=== PATIENT | male | born 1970 | race African-American/Black ===

== ENCOUNTER 2018-06-28 02:22 | Emergency (ER) | payer OTHER ==
[2018-06-28 02:57] LABS: #Basophils 0.1 thou/uL (0.0-0.2); #Eosinphils 0.1 thou/uL (0.0-0.7); #Lymphocytes 2.2 thou/uL (1.20-3.40); #Monocytes 0.5 thou/uL (0.11-0.59); #Neutrophils 4.2 thou/uL (1.40-6.50); %Basophils 1.2 % (0.0-1.0); %Eosinophils 1.6 % (0.0-10.0); %Lymphocytes 31.3 % (21.0-51.0); %Monocytes 7.1 % (0.0-10.0); %Neutrophils 58.8 % (42.0-75.0); Hemoglobin 10.9 g/dL (14.0-18.0); Mean Corpuscular HGB CONC 31.4 g/dL (32.0-36.0); Mean Corpuscular Volume 76.5 fL (78.0-98.0); Mean Platelet Volume 7.8 fL (7.4-10.4); Platelet Count 237 thou/uL (130-400); RBC Distribution Width 11.3 % (11.5-14.5); Red Blood Cell (RBC) Count 4.55 mill/uL (4.70-6.10); White Blood Cell (WBC) Count 7.1 thou/uL (4.8-10.8)
[2018-06-28 03:22] LABS: Troponin I Less than 0.010 ng/mL (< 0.028)
[2018-06-28 03:25] LABS: ALT (SGPT) 51 U/L (8-55); AST (SGOT) 87 U/L (5-34); Albumin 4.2 g/dL (3.5-5.0); Alcohol 125 mg/dL (Less than 10); Alkaline Phosphatase 48 U/L (40-150); Anion Gap 13 mmol/L (10-20); BUN (Urea Nitrogen) 12 mg/dL (8.9-20.6); Bilirubin, Total 0.9 mg/dL (0.2-1.2); Calc. Creatinine Clearance 0 mL/min (70-130); Calcium 9.5 mg/dL (7.8-10.44); Carbon Dioxide 25 mmol/L (22-29); Chloride 104 mmol/L (98-107); Estimated GFR-MDRD 81; Globulin 3.1 g/dL (2.4-3.5); Glucose 202 mg/dL (70-105); Potassium 4.2 mmol/L (3.5-5.1); Protein, Total 7.3 g/dL (6.0-8.3); Sodium 138 mmol/L (136-145)
[2018-06-28 03:27] LABS: CKMB 11.8 ng/mL (0-6.6)
[2018-06-28 04:53] LABS: Bilirubin Negative (Negative); Blood, Urine Negative (Negative); Clarity CLEAR (Clear); Glucose, Urine (Dipstick) 250 mg/dL (Negative); Leukocyte Negative (Negative); Nitrite Negative (Negative); Protein, Urine (Dipstick) 30 mg/dL (Neg-Trace); Specific Gravity, Urine 1.009 (1.002-1.036); Urobilinogen 0.2 mg/dL (0.2-1.0); pH, Urine 5.5 (5.0-9.0)
[2018-06-28 04:56] LABS: Bacteria/HPF None Seen HPF (None Seen); Hyaline Casts/LPF 4-6 HYALINE CAST LPF (0-3 Hyaline); Pathc Cast-AUWi Flag 0.58 (0-2.49); RBC/HPF None Seen HPF (0-3); Squamous Epithelial 0-3 HPF (0-3); WBC/HPF 0-3 HPF (0-3)
[2018-06-28 05:05] LABS: Amphetamine Not Detected (NotDetected); Barbiturates Screen Not Detected (NotDetected); Benzodiazepine Screen Not Detected (NotDetected); Cocaine Metabolite Screen Not Detected (NotDetected); Medtox Control Line Valid? VALID (VALID); Medtox Reader # READER 4; Methadone Not Detected (NotDetected); Methamphetamine Not Detected (NotDetected); Opiate Screen Not Detected (NotDetected); Oxycodone Screen Not Detected (NotDetected); Phencyclidine (PCP) Not Detected (NotDetected); THC/Cannabinoid Screen Not Detected (NotDetected); Tricyclic Screen Not Detected (NotDetected)
--- NOTE | 2018-06-28 07:48 | RAD ---
SINGLE VIEW OF THE CHEST: COMPARISON: None. HISTORY: Syncope. Seizure. FINDINGS: Single view of the chest shows a normal sized cardiomediastinal silhouette. There is no evidence of c onsolidation, mass, or pleural effusion. The bones are unremarkable. IMPRESSION: No evidence of acute cardiopulmonary disease. POS: [facility]
--- NOTE | 2018-06-28 08:43 | CT ---
PRELIMINARY REPORT/[facility]/EMERGENTY AFTER-HOURS PROCEDURE CT Head Without Intravenous Contrast EXAM DATE/TIME: 06/28/2018 3:03 AM CLINICAL HISTORY: 48 years old, male; Injury or trauma and signs and symptoms; Fall; Initial encounter; Blunt trauma (c ontusions or hematomas); Consciousness not specified; Altered mental status/memory loss; Confusion or disorientation; Patient HX: M48 presents to ed via ems for AMS per . reports that patient got out of bed and walked into laundry room where patient fell, unwitnessed but heard by daughter from other room. PT found PT on the floor lying over a laundry basket. took him t o the bathroom after he indicated the need to urinate but states he was not speaking at that louie e. While urinating, patient "went limp" and lost consciousness causing him to fall forward and hit hi s head on the wall TECHNIQUE: Axial computed tomography images of the head/brain without intravenous contrast. COMPARISON: No relevant prior studies available. FINDINGS: Brain: No acute intracranial hemorrhage or mass effect. No definite acute infarct by CT. MRI could be more sensitive/specific for detection, as clinically di rected. Ventricles: Ventricle size is normal for age. Bones/joints: No definite acute skull fracture. Sinuses: Included paranasal sinuses are essentially clear. Mastoid air cells: No significant acute finding. IMPRESSION: 1. No acute intracranial bleed or mass effect. 2. No definite acute infarct by CT, see above. Thank you for allowing us to participate in the care of your patient. Dictated and Authenticated by: Harpreet Sierra MD 06/28/2018 3:18 AM Central Time ([place] & [place]) FINAL REPORT EMERGENCY AFTER HOURS BRAIN CT WITHOUT IV CONTRAST: Date: 06/28/18 Time: 0304 hours FINDINGS/IMPRESSION: No mass or bleed, or other acute process. Report in agreement with preliminary report given on-call by vRsteven. POS: [facility]
--- NOTE | 2018-06-30 18:24 | EKG ---
Test Reason : SYNCOPE Blood Pressure : / mmHG Vent. Rate : 088 BPM Atrial Rate : 088 BPM P-R Int : 174 ms QRS Dur : 094 ms QT Int : 362 ms P-R-T Axes : 054 002 025 degrees QTc Int : 438 ms Normal sinus rhythm Nonspecific ST and T wave abnormality Abnormal ECG Confirmed by JELENA GAMBOA ([id number]), field map editor DARRON RAMOS ([id number]) on 06/30/2018 6:23:36 PM Referred By: Confirmed By:JELENA GAMBOA
== END 2018-06-28 08:20 | disposition home or self-care (01) ==
LOC: ERS 02:22
DX: M62.82 Rhabdomyolysis (principal); R41.82 Altered mental status, unspecified; I10 Essential (primary) hypertension; E11.9 Type 2 diabetes mellitus without complications; E78.00 Pure hypercholesterolemia, unspecified; F17.220 Nicotine dependence, chewing tobacco, uncomplicated; Z79.899 Other long term (current) drug therapy
CPT/HCPCS: 36415; 36416; 70450; 71045; 80053; 80306; 80307; 81003; 81015; 82553; 84484; 85025; 93005; 96360; 96361

== ENCOUNTER 2019-04-04 05:46 | Emergency (ER) | payer OTHER ==
[2019-04-04] MEDS ORDERED: Ondansetron PF 4 MG/2 ML Vial ONE (06:18)
[2019-04-04] MEDS ORDERED: Aspirin Chewable 81 MG TAB ONE (06:18)
[2019-04-04] MEDS ORDERED: Morphine 4 MG/ML VIAL ONE (06:18)
[2019-04-04 07:07] LABS: #Basophils 0.1 thou/uL (0.0-0.2); #Lymphocytes 0.9 thou/uL (1.20-3.40); #Monocytes 1.2 thou/uL (0.11-0.59); #Neutrophils 8.4 thou/uL (1.40-6.50); %Basophils 0.6 % (0.0-1.0); %Eosinophils 0.3 % (0.0-10.0); %Lymphocytes 8.7 % (21.0-51.0); %Monocytes 11.3 % (0.0-10.0); %Neutrophils 79.1 % (42.0-75.0); Hemoglobin 11.5 g/dL (14.0-18.0); Mean Corpuscular Hemoglobin 23.5 pg (27.0-31.0); Mean Corpuscular Volume 75.8 fL (78.0-98.0); Mean Platelet Volume 7.9 fL (7.4-10.4); Platelet Count 233 thou/uL (130-400); RBC Distribution Width 11.2 % (11.5-14.5); Red Blood Cell (RBC) Count 4.88 mill/uL (4.70-6.10); White Blood Cell (WBC) Count 10.7 thou/uL (4.8-10.8)
[2019-04-04 07:22] LABS: ALT (SGPT) 29 U/L (8-55); AST (SGOT) 22 U/L (5-34); Albumin 4.8 g/dL (3.5-5.0); Alkaline Phosphatase 64 U/L (40-150); Anion Gap 17 mmol/L (10-20); BUN (Urea Nitrogen) 10 mg/dL (8.9-20.6); Bilirubin, Total 0.5 mg/dL (0.2-1.2); Calc. Creatinine Clearance 0 mL/min (70-130); Calcium 9.9 mg/dL (7.8-10.44); Carbon Dioxide 23 mmol/L (22-29); Chloride 102 mmol/L (98-107); Estimated GFR-MDRD 77; Globulin 3.7 g/dL (2.4-3.5); Glucose 239 mg/dL (70-105); Potassium 4.2 mmol/L (3.5-5.1); Protein, Total 8.5 g/dL (6.0-8.3); Sodium 138 mmol/L (136-145)
--- NOTE | 2019-04-04 07:51 | RAD ---
XR Chest 1 View Portable HISTORY: Chest pain COMPARISON: 06/28/2018 FINDINGS: The heart size is normal. The lungs are well expanded without focal areas of consolidation, pneumothorax or pleural effusions. IMPRESSION: No radiographic evidence of acute cardiopulmonary process.
[2019-04-04] MEDS ORDERED: Ketorolac Tromethamine 30 MG/ML VIAL ONE (08:50)
[2019-04-04 10:57] LABS: Troponin I Less than 0.010 ng/mL (< 0.028)
--- NOTE | 2019-04-07 03:16 | EKG ---
Test Reason : Blood Pressure : / mmHG Vent. Rate : 082 BPM Atrial Rate : 082 BPM P-R Int : 154 ms QRS Dur : 084 ms QT Int : 352 ms P-R-T Axes : 020 000 -06 degrees QTc Int : 411 ms Normal sinus rhythm Possible Left atrial enlargement Borderline ECG Confirmed by SANGITA JULIEN DO ([id number]), editor news DARRON RAMOS ([id number]) on 04/07/2019 3:15:21 AM Referred By: Confirmed By:SANGITA JULIEN DO
== END 2019-04-04 11:47 | disposition home or self-care (01) ==
LOC: ERS 05:46
DX: R07.9 Chest pain, unspecified (principal); E11.9 Type 2 diabetes mellitus without complications; I10 Essential (primary) hypertension; E78.00 Pure hypercholesterolemia, unspecified; F17.220 Nicotine dependence, chewing tobacco, uncomplicated; Z79.84 Long term (current) use of oral hypoglycemic drugs; Z79.899 Other long term (current) drug therapy
CPT/HCPCS: 36415; 71045; 80053; 84484; 85025; 93005; J1885; J2270; J2405

== ENCOUNTER 2019-04-04 17:54 | Inpatient (IN) | payer OTHER ==
[~2019-04-04 17:54] MED LIST: ISOVUE-370 76%-LOCM 1 ML ONE
[2019-04-04] MEDS ORDERED: Acetaminophen 500 MG TAB ONE ×2 (18:50→19:28)
--- NOTE | 2019-04-04 19:03 | RAD ---
Chest one view HISTORY: Chest pain. COMPARISON: 04/04/2019. FINDINGS: Cardiac silhouette is magnified by projection. Pulmonary vasculature is unremarkable. Chron ic interstitial prominence at the lung bases is unchanged in appearance. Mediastinum is midline. No lobar consolidation or evidence of pneumothorax. IMPRESSION: No active cardiopulmonary abnormalities are demonstrated.
[2019-04-04 19:58] LABS: #Monocytes 1.4 thou/uL (0.11-0.59); #Neutrophils 10.4 thou/uL (1.40-6.50); %Basophils 0.3 % (0.0-1.0); %Eosinophils 0.1 % (0.0-10.0); %Monocytes 10.7 % (0.0-10.0); Hemoglobin 11.2 g/dL (14.0-18.0); Mean Corpuscular HGB CONC 32.7 g/dL (32.0-36.0); Mean Corpuscular Hemoglobin 24.2 pg (27.0-31.0); Mean Corpuscular Volume 74.1 fL (78.0-98.0); Mean Platelet Volume 10.5 fL (7.4-10.4); Platelet Count 222 thou/uL (130-400); RBC Distribution Width 11.4 % (11.5-14.5); Red Blood Cell (RBC) Count 4.64 mill/uL (4.70-6.10); White Blood Cell (WBC) Count 12.9 thou/uL (4.8-10.8)
[2019-04-04 20:56] LABS: Albumin 4.1 g/dL (3.5-5.0)
[2019-04-04 20:57] LABS: Chloride 100 mmol/L (98-107); Potassium 3.8 mmol/L (3.5-5.1); Sodium 133 mmol/L (136-145)
[2019-04-04] MEDS ORDERED: Aspirin 325 MG TAB ONE (20:57)
[2019-04-04 20:58] LABS: Calcium 8.9 mg/dL (7.8-10.44)
[2019-04-04 20:59] LABS: Globulin 3.1 g/dL (2.4-3.5); Glucose 193 mg/dL (70-105); Protein, Total 7.2 g/dL (6.0-8.3)
[2019-04-04 21:00] LABS: Anion Gap 12 mmol/L (10-20); Carbon Dioxide 25 mmol/L (22-29)
[2019-04-04 21:01] LABS: Alkaline Phosphatase 53 U/L (40-150); Bilirubin, Total 0.5 mg/dL (0.2-1.2)
[2019-04-04 21:02] LABS: Calc. Creatinine Clearance 0 mL/min (70-130); Estimated GFR-MDRD 84
[2019-04-04 21:03] LABS: BUN (Urea Nitrogen) 11 mg/dL (8.9-20.6)
[2019-04-04 21:04] LABS: ALT (SGPT) 23 U/L (8-55); AST (SGOT) 16 U/L (5-34)
[2019-04-04 21:05] LABS: CK (CPK) 157 U/L (30-200); Lipase 14 U/L (8-78)
--- NOTE | 2019-04-04 21:13 | CT ---
CT arteriogram chest with IV contrast and 3-D imaging HISTORY: Chest pain. FINDINGS: There is good contrast opacification pulmonary arteries and thoracic aorta with normal bran ashwini of the great vessels at the aortic arch. No pneumothorax or mediastinal adenopathy. Mild patchy bibasilar atelectasis. No lobar consolidation or pleural fluid. IMPRESSION: No CT evidence of pulmonary embolus.
[2019-04-04 21:30] LABS: Bilirubin Negative (Negative); Blood, Urine Negative (Negative); Clarity Clear (Clear); Glucose, Urine (Dipstick) Greater than 1000 mg/dL (Negative); Leukocyte Negative Leu/uL (Negative); Nitrite Negative (Negative); Protein, Urine (Dipstick) Negative (Neg-Trace); Urobilinogen Normal mg/dL (Less than 2)
[2019-04-04] MEDS ORDERED: Ketorolac Tromethamine 30 MG/ML VIAL ONE (21:48)
[2019-04-04 23:24] LABS: Troponin I Less than 0.010 ng/mL (< 0.028)
[2019-04-05 02:34] LABS: Troponin I Less than 0.010 ng/mL (< 0.028)
[2019-04-05] MEDS ORDERED: Ondansetron PF 4 MG/2 ML Vial IVP PRN (03:18)
[2019-04-05] MEDS ORDERED: HYDROcodone/Acetaminophen 5/325 mg Tablet PO PRN ×2 (03:18)
[2019-04-05] MEDS ORDERED: Ondansetron ODT 4 MG TAB SL PRN (03:18)
[2019-04-05 03:35] VITALS: BMI 27.2
[2019-04-05] MEDS ORDERED: Dextrose 5% in Water 1,000 ML IV PRN (06:07)
[2019-04-05] MEDS ORDERED: Dextrose 50% Abboject 50 ML SYRINGE SLOW IVP PRN (06:07)
[2019-04-05] MEDS ORDERED: Ibuprofen 800 MG TAB PO PRN (06:07)
[2019-04-05] MEDS ORDERED: Cyclobenzaprine 10 MG TAB PO PRN (06:07)
[2019-04-05] MEDS: Ibuprofen 200 MG TAB PO PRN ×2 (06:32→14:31)
--- NOTE | 2019-04-05 07:13 | HP ---
PRIMARY CARE DOCTOR: Evaristo Cobb MD CODE STATUS: Full code. TIME OF EVALUATION: 6:00 a.m. CHIEF COMPLAINT: Chest pain. HISTORY OF PRESENT ILLNESS: This is a 49-year-old male patient with past medical history of hypertension, high cholesterol, diabetes type 2, came to the hospital after having shoulder pain in the right shoulder. The symptoms appeared when he was doing heavy work and felt a tingling sensation. After that, the patient developed fever. There is no evidence, source, or symptoms. The pain is sharp, severe, sudden onset, has continued to worsen. Fever is still present during my evaluation. REVIEW OF SYSTEMS: All systems reviewed were negative except for the findings mentioned above. PAST MEDICAL HISTORY: Possible hypertension, high cholesterol, diabetes type 2. PAST SURGICAL HISTORY: No surgical history. PSYCH HISTORY: No previous psych history. SOCIAL HISTORY: The patient drinks socially every week. No drugs. The patient chews tobacco. KNOWN ALLERGIES: No known drug allergies. REPORTED MEDICATIONS: 1. Losartan. 2. Ibuprofen. 3. Metformin. 4. Flexeril. 5. Flonase. 6. Acetaminophen. 7. Codeine. 8. Motrin. PHYSICAL EXAMINATION: VITAL SIGNS: On presentation, blood pressure 147/71, heart rate 93, respiratory rate was 18, temperature 101.2. Pain was 7/10. Oxygen saturation was 100% on room air. GENERAL APPEARANCE: The patient is alert, oriented, in no acute distress. HEENT: Eyes, normal conjunctivae. Moist oral mucosa. Anicteric. No JVD. RESPIRATORY: Bilateral air entry. No rales. No wheezes. Symmetric expansion. CARDIOVASCULAR: Normal rate, regular rhythm. No murmurs. No gallop. No edema. ABDOMEN: Soft. Normal bowel sounds. MUSCULOSKELETAL: Baseline range of motion and strength except for the right shoulder that is tender with movement. SKIN: Warm, intact. No pallor. No rash. No redness. Capillary refill seems be to intact. NEUROLOGIC: No evidence of any new focal weakness. Cranial nerves seem to be intact. PSYCH: The patient is in good mood. No anxiety. Optimal judgment. DIAGNOSTIC FINDINGS: EKG was reviewed. The patient has normal sinus rhythm at a rate of 60 with nonspecific T-wave changes. RADIOLOGY: Chest CT negative. No pulmonary embolism. No pneumonia. LABORATORY DATA: White count of 12.9, hemoglobin 11.2, MCV 74.1, platelet count 222. D-dimer 1.66. Sodium 133, potassium 3.8, chloride 100, carbon dioxide 25, anion gap 12, BUN 11, creatinine 1.12, GFR 84, glucose 193, the repeat one 316, lactic acid 2.0, calcium 8.9. Troponin was negative x3. Urine was done which shows glycosuria. ASSESSMENT AND PLAN: The patient will be placed in the hospital with following medical problems: 1. Systemic inflammatory response syndrome, unclear etiology for the fever and tachycardia. We will continue to monitor. Cultures have been sent. We will adjust treatment as per the findings. His daughter is having the same symptoms with upper respiratory infection symptoms a week ago, so these might be . 2. Hyponatremia with sodium of 133, this is mild, we will monitor. No need for any acute intervention at this point. 3. Uncontrolled diabetes with sugar of 316. We will reconcile home medications and put the patient on sliding scale for optimal control. 4. Chest pain, seems to be musculoskeletal. The patient has fever. The patient has a history of pulling the muscles. We will monitor and treat symptomatically. If any further concern remains, could consider cardiac workup. By history, it does not seems to be cardiac. Job ID: [id number]
[2019-04-05] MEDS: Acetaminophen/Codeine 30-300mg Tablet PO PRN ×2 (08:51→23:09)
[2019-04-05] MEDS: Losartan 25 MG TAB PO SCH (08:54)
[2019-04-05] MEDS ORDERED: FLUTICASONE PROPIONATE IH SCH (09:00)
--- NOTE | 2019-04-05 15:27 | PDOC.HOSPP ---
- Subjective Encounter Date: 04/05/19 Encounter Time: 15:26 Subjective: pt up in bed has pain to his right chest wall area - Objective Vital Signs & Weight: Vital Signs (12 hours) Temp Pulse Resp BP Pulse Ox 04/05/19 14:29 100.2 F H 04/05/19 11:40 98 F 88 12 138/75 96 04/05/19 08:00 98.4 F 74 12 124/64 94 L 04/05/19 06:21 100.5 F H Weight Weight 184 lb 4.8 oz I&O: 04/04/19 04/05/19 04/06/19 06:59 06:59 06:59 Intake Total 500 Balance 500 Result Diagrams: 04/04/19 19:43 04/04/19 20:35 Additional Labs: Accuchecks 04/05/19 04/05/19 10:30 03:04 POC Glucose 286 H 316 H Hospitalist ROS - Review of Systems Cardiovascular: reports: chest pain Gastrointestinal: denies: nausea, vomitting, abdominal pain, diarrhea, constipation, melena, hematochezia, other Genitourinary: denies: dysuria, frequency, incontinence, hematuria, retention, other Musculoskeletal: denies: neck pain, shoulder pain, arm pain, back pain, hand pain, leg pain, foot pain, other - Medication Medications: Active Medications Generic Name Dose Route Start Last Admin Trade Name Freq PRN Reason Stop Dose Admin Acetaminophen/Codeine Phosphate 1 tab 04/05/19 06:07 04/05/19 08:51 Tylenol #3 PO 1 tab Q6HR PRN Administration Pain Losartan Potassium 25 mg 04/05/19 09:00 04/05/19 08:54 Cozaar PO 25 mg DAILY GEORGIE Administration Sodium Chloride 10 ml 04/05/19 09:00 04/05/19 08:54 Flush - Normal Saline IVF 10 ml Q12HR GEORGIE Administration - Exam Heart - other findings: pain on palpation of right chest wall area Respiratory: negative: CTAB, no wheezes, no rales, no ronchi, normal chest expansion, no tachypnea, normal percussion, rales, rhonchi, tachypneic, wheezes Gastrointestinal: negative: soft, non-tender, non-distended, normal bowel sounds , no palpable masses, no hepatomegaly, no splenomegaly, no bruit, no guarding, no rigidity, tender to palpation, distended, diminished bowl sounds, voluntary guarding Hosp A/P (1) Chest pain Code(s): R07.9 - CHEST PAIN, UNSPECIFIED Status: Acute (2) Diabetes Code(s): E11.9 - TYPE 2 DIABETES MELLITUS WITHOUT COMPLICATIONS Status: Acute - Plan atypical chest pain most likely due to musculoskeletal. will start him on toradol and flexeril. warm compression to right chest wall. pt has a low grade temp, will hold off on abx, ua negative. cxr negative. will check hbg alc.
[2019-04-05] MEDS: Ketorolac Tromethamine 30 MG/ML VIAL IVP SCH ×2 (15:31→23:09)
[2019-04-05] MEDS: Acetaminophen 325 MG TAB PO PRN (15:32)
[2019-04-05] MEDS: Cyclobenzaprine 10 MG TAB PO SCH ×2 (15:32→20:45)
[2019-04-05] MEDS: HumaLOG 300 UNITS/3 ML VIAL SC PRN (18:01)
[2019-04-05] MEDS: Mometasone Furoate 120 PUFF 220 MCG INH SCH ×2 (19:23→20:28)
[2019-04-05] MEDS ORDERED: HumaLOG 300 UNITS/3 ML VIAL SC PRN (22:38)
[2019-04-06] MEDS: Benzonatate 100 MG CAP PO PRN ×2 (00:14→18:31)
[2019-04-06 06:06] LABS: #Lymphocytes 1.3 thou/uL (1.20-3.40); #Monocytes 1.4 thou/uL (0.11-0.59); #Neutrophils 11.5 thou/uL (1.40-6.50); %Basophils 0.3 % (0.0-1.0); %Eosinophils 0.2 % (0.0-10.0); %Lymphocytes 9.2 % (21.0-51.0); %Neutrophils 80.3 % (42.0-75.0); Hemoglobin 10.4 g/dL (14.0-18.0); Mean Corpuscular HGB CONC 32.4 g/dL (32.0-36.0); Mean Corpuscular Hemoglobin 24.7 pg (27.0-31.0); Mean Corpuscular Volume 76.2 fL (78.0-98.0); Mean Platelet Volume 7.9 fL (7.4-10.4); Platelet Count 218 thou/uL (130-400); Red Blood Cell (RBC) Count 4.22 mill/uL (4.70-6.10); White Blood Cell (WBC) Count 14.3 thou/uL (4.8-10.8)
[2019-04-06 06:17] LABS: Hemoglobin A1c 6.4 % (4.0-6.0)
[2019-04-06 06:29] LABS: Anion Gap 13 mmol/L (10-20); BUN (Urea Nitrogen) 12 mg/dL (8.9-20.6); Calc. Creatinine Clearance 101 mL/min (70-130); Calcium 9.5 mg/dL (7.8-10.44); Carbon Dioxide 26 mmol/L (22-29); Chloride 100 mmol/L (98-107); Estimated GFR-MDRD Greater than 90; Glucose 178 mg/dL (70-105); Potassium 4.1 mmol/L (3.5-5.1); Sodium 135 mmol/L (136-145)
[2019-04-06] MEDS: Ketorolac Tromethamine 30 MG/ML VIAL IVP SCH ×2 (06:35→11:31)
[2019-04-06] MEDS: Cyclobenzaprine 10 MG TAB PO SCH ×2 (08:26→14:52)
[2019-04-06] MEDS: Losartan 25 MG TAB PO SCH (08:26)
[2019-04-06] MEDS ORDERED: Lidocaine 5% Patch TD SCH (09:00)
[2019-04-06] MEDS: HumaLOG 300 UNITS/3 ML VIAL SC PRN ×2 (11:33→17:35)
[2019-04-06] MEDS ORDERED: traMADol HCl 50 MG TAB PO PRN (12:23)
[2019-04-06] MEDS ORDERED: Acetaminophen/Codeine 30-300mg Tablet PO PRN (12:30)
--- NOTE | 2019-04-06 14:21 | RAD ---
EXAM: XR Chest Pa Lat STANDARD PROVIDED CLINICAL HISTORY: Unknown abnormal exam COMPARISON: 04/04/2019 FINDINGS: Cardiac silhouette appears enlarged. Right basilar parenchymal opacity. Blunting of each costophrenic angle. No evidence for pneumothorax. Prominence of the pulmonary vasculature. IMPRESSION: Development of right basilar pleural and/or parenchymal opacity. This may reflect pleural fluid with adjacent atelectasis or pneumonia. Small left pleural effusion.
[2019-04-06] MEDS: Acetaminophen 325 MG TAB PO PRN (14:52)
[2019-04-06 16:02] VITALS: BP 177/86; TEMP 99.2
[2019-04-06] MEDS: Mometasone Furoate 120 PUFF 220 MCG INH SCH (18:11)
[2019-04-06] MEDS ORDERED: Lidocaine Patch Removal TOP SCH (21:00)
--- NOTE | 2019-04-06 22:33 | EKG ---
Test Reason : ERS[facility] Blood Pressure : / mmHG Vent. Rate : 094 BPM Atrial Rate : 094 BPM P-R Int : 138 ms QRS Dur : 074 ms QT Int : 318 ms P-R-T Axes : 050 009 029 degrees QTc Int : 397 ms Normal sinus rhythm Nonspecific T wave abnormality Abnormal ECG Confirmed by ERNESTINE BLANCHARD, BESSY Hall ([id number]), senior technical editor DARRON RAMOS ([id number]) on 04/06/2019 10:32:46 PM Referred By: Confirmed By:BESSY SINHA MD
== END 2019-04-06 18:39 | disposition home or self-care (01) | DRG 313 ==
LOC: ERS 17:54 → ERHOLD 22:43 → OBSVTOIN 22:43 → 2SW 04-05 02:48
PROVIDERS: ADMIT Hospitalist; ATTEND Hospitalist
DX: R07.89 Other chest pain (principal); E87.1 Hypo-osmolality and hyponatremia; R65.10 Systemic inflammatory response syndrome (SIRS) of non-infectious origin without acute organ dysfunction; I10 Essential (primary) hypertension; E11.9 Type 2 diabetes mellitus without complications; E78.5 Hyperlipidemia, unspecified; F17.220 Nicotine dependence, chewing tobacco, uncomplicated; Z79.84 Long term (current) use of oral hypoglycemic drugs; Z79.899 Other long term (current) drug therapy
CPT/HCPCS: 36415; 36416; 71045; 71046; 71275; 80048; 80053; 81003; 82550; 83036; 83605; 83690; 84484; 85025; 85379; 87040; 87633; 87798; 87804; 93005; 96361; 96374; 96375; J1885; J2270; J2405; Q9966

== ENCOUNTER 2019-04-16 13:12 | Outpatient (CLI) | payer OTHER ==
--- NOTE | 2019-04-16 13:44 | RAD ---
XR Chest Pa Lat STANDARD HISTORY: Pneumonia of right lower lobe due to infectious organism. Follow-up COMPARISON: 04/06/2019 FINDINGS: The heart size is normal. The lungs are well expanded without focal areas of consolidation, pneumothorax or pleural effusions. IMPRESSION: No radiographic evidence of acute cardiopulmonary process. There has been interval resolu tion of the pneumonic process seen on exam of 04/06/2019.
[2019-04-16 14:56] LABS: #Basophils 0.1 thou/uL (0.0-0.2); #Eosinphils 0.1 thou/uL (0.0-0.7); #Monocytes 0.8 thou/uL (0.11-0.59); #Neutrophils 8.9 thou/uL (1.40-6.50); %Basophils 0.9 % (0.0-1.0); %Eosinophils 0.8 % (0.0-10.0); %Lymphocytes 16.6 % (21.0-51.0); %Monocytes 6.4 % (0.0-10.0); %Neutrophils 75.2 % (42.0-75.0); Hemoglobin 9.8 g/dL (14.0-18.0); Hypochromia SLIGHT = 6-15 cells (100X) (0-5/hpf); MDiff Complete? YES; Macrocytosis SLIGHT = 6-15 cells (100X) (0-5/hpf); Mean Corpuscular HGB CONC 29.5 g/dL (32.0-36.0); Mean Corpuscular Hemoglobin 22.2 pg (27.0-31.0); Mean Corpuscular Volume 75.4 fL (78.0-98.0); Microcytosis SLIGHT = 6-15 cells (100X) (0-5/hpf); Platelet Count 687 thou/uL (130-400); Platelet Morphology Comment Appears Increased; RBC Distribution Width 12.5 % (11.5-14.5); Target Cells SLIGHT = 2-5 cells (100X) (0-1/hpf); White Blood Cell (WBC) Count 11.9 thou/uL (4.8-10.8)
== END 2019-04-16 13:13 | disposition home or self-care (01) ==
LOC: SCSRAD 13:12
PROVIDERS: ATTEND Family Medicine
DX: J18.1 Lobar pneumonia, unspecified organism (principal)
CPT/HCPCS: 36415; 71046; 85025

== ENCOUNTER 2019-05-16 08:04 | Outpatient (CLI) | payer OTHER ==
--- NOTE | 2019-05-16 09:05 | CT ---
CT CHEST WITH IV CONTRAST: INDICATION: Chest wall pain. Right lower lobe pneumonia. FINDINGS: The lung robb are well aerated. There is no evidence of lung infiltrate or effusion. Mild strandi ng in the left lung base. There is an 8-9 mm nodule in the right lung base peripherally. Nonspecific adenopathy is seen in the right hilar region. There is a right hilar lymph node measurin g up to 1.8 cm. Thoracic aorta is unremarkable. Proximal pulmonary arteries are opacified with no evidence of proxim al pulmonary embolus. Thoracic vertebrae maintain normal height and alignment. IMPRESSION: 1. A 9 mm nodule in the right lung base with right hilar adenopathy. Close followup recommended. C onsider further evaluation with PET scan. If PET scan is not performed, recommend short-term followu p repeat noncontrast chest CT in 3-6 months. CODE T POS: OFF
== END 2019-05-16 08:05 | disposition home or self-care (01) ==
LOC: BICCT 08:04
PROVIDERS: ATTEND Family Medicine
DX: J18.1 Lobar pneumonia, unspecified organism (principal); R07.89 Other chest pain; D72.828 Other elevated white blood cell count; L98.9 Disorder of the skin and subcutaneous tissue, unspecified; R91.1 Solitary pulmonary nodule; R59.0 Localized enlarged lymph nodes
CPT/HCPCS: 71260

== ENCOUNTER 2019-06-18 13:17 | Outpatient (CLI) | payer OTHER ==
--- NOTE | 2019-06-18 13:46 | RAD ---
RADIOGRAPH CHEST 2 VIEWS: DATE: 06/18/2019 HISTORY: 49-year-old male with dyspnea FINDINGS: The lungs are clear. The cardiomediastinal silhouette and hilar shadows appear normal. There is no pl eural effusion or pneumothorax. No osseous abnormality is identified. IMPRESSION: Normal
== END 2019-06-18 13:18 | disposition home or self-care (01) ==
LOC: RAD 13:17
PROVIDERS: ATTEND Internal Medicine Critical Care Medicine
DX: R06.00 Dyspnea, unspecified (principal)
CPT/HCPCS: 71046

== ENCOUNTER 2020-06-01 08:42 | Outpatient (CLI) | payer OTHER ==
--- NOTE | 2020-06-01 10:55 | CT ---
CT OF CHEST PERFORMED WITHOUT CONTRAST ENHANCEMENT: Date; 06/01/2020 HISTORY: Follow-up of lung nodule. COMPARISON: 05/16/2019 exam. FINDINGS: The lungs are clear of any infiltrative process. A slightly lobulated right lower lobe pulmonary nodu le seen on axial image 106 is again identified, it remains stable in size in the 8-9 mm range. There is a calcified right hilar lymph node present. Small mediastinal nodes are noted. Some minimal carcamo ry artery calcifications are noted. No significant axillary adenopathy. The visualized liver parenchyma is unremarkable. There is an area of focal fatty change in the region of the falciform ligament. This is a stable finding. What is pro bably hemangioma noted on the previous examination is difficult to appreciate on this noncontrast martina dy. IMPRESSION: 1. Stable 8-9 mm right lower lobe slightly lobulated pulmonary nodule. 2. The right lobe liver lesion seen on the previous examination which may have been a hemangioma is incompletely characterized and is not seen on this noncontrast study. POS: [facility]
== END 2020-06-01 08:43 | disposition home or self-care (01) ==
LOC: BICCT 08:42
PROVIDERS: ATTEND Internal Medicine Critical Care Medicine
DX: R91.1 Solitary pulmonary nodule (principal); K76.9 Liver disease, unspecified
CPT/HCPCS: 71250